=== PATIENT | female | born 1985 | race Caucasian/White ===

== ENCOUNTER 2017-01-11 17:38 | Inpatient (IN) | payer OTHER ==
[~2017-01-11] VITALS: Ht 167.6 cm; Wt 68.0 kg
[2017-01-11 22:34] VITALS: Ht 167.6 cm; Wt 68.0 kg
[2017-01-11 22:36] VITALS: BP 157/95; RESP 18
[2017-01-11] MEDS ORDERED: HYDROCODONE/APAP (5/325) TAB PO PRN (23:30)
[2017-01-11] MEDS ORDERED: BISACODYL (EC) 5 MG TAB PO PRN (23:30)
[2017-01-11] MEDS ORDERED: ONDANSETRON 4 MG INJ IV PRN (23:30)
[2017-01-11] MEDS ORDERED: ACETAMINOPHEN 325 MG TAB PO PRN (23:30)
[2017-01-12] MEDS: LORAZEPAM 1 MG TAB PO PRN ×3 (00:18→15:10)
[2017-01-12 02:55] VITALS: BP 94/55; RESP 17
[2017-01-12] MEDS: PANTOPRAZOLE 40 MG INJ IV SCH (05:31)
[2017-01-12 05:53] LABS: ADD SCAN DIFF NO
[2017-01-12 05:54] LABS: BASOPHILS % 0.5 % (0.0-2.0); EOSINOPHILS # 0.1 10^3/ul (0.0-0.5); EOSINOPHILS % 2.2 % (0.0-7.0); HEMATOCRIT 40.4 % (37.0-47.0); HEMOGLOBIN 13.7 g/dl (12.0-16.0); LYMPHOCYTES # 2.8 10^3/ul (0.8-2.9); LYMPHOCYTES % 47.7 % (15.0-51.0); MEAN CORPUSCULAR HEMOGLOBIN 29.8 pg (29.0-33.0); MEAN CORPUSCULAR HGB CONC 33.9 g/dl (32.0-37.0); MEAN PLATELET VOLUME 11.5 fl (7.4-10.4); MONOCYTE # 0.5 10^3/ul (0.3-0.9); MONOCYTES % 8.6 % (0.0-11.0); NEUTROPHIL # 2.4 10^3/ul (1.6-7.5); NEUTROPHILS % 40.8 % (39.0-77.0); PLATELET COUNT 219 10^3/UL (140-415); RED BLOOD COUNT 4.59 10^6/ul (4.20-5.40); RED CELL DISTRIBUTION WIDTH 11.8 % (11.5-14.5); WHITE BLOOD COUNT 5.8 10^3/ul (4.8-10.8)
[2017-01-12 07:18] LABS: CALCIUM 9.2 mg/dl (8.4-10.2); CREATININE 0.75 mg/dl (0.44-1.00); POTASSIUM 3.9 mmol/L (3.5-5.1)
[2017-01-12] MEDS: HYDROCODONE/APAP (10/325) TAB PO PRN ×3 (07:38→19:21)
[2017-01-12] MEDS: ONDANSETRON 4 MG TAB PO PRN (07:38)
[2017-01-12] MEDS: POLYETHYLENE GLYCOL 17 GM PACKET PO SCH (08:37)
[2017-01-12] MEDS: DOCUSATE SODIUM 100 MG CAP PO SCH ×2 (08:37→21:03)
[2017-01-12] MEDS: HEPARIN 5,000 UNIT/0.5 ML VIAL SC SCH ×2 (08:38→21:00)
[2017-01-12 08:40] VITALS: BP 100/71; RESP 18
[2017-01-12 14:16] VITALS: BP 100/58; RESP 20
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
[2017-01-12 18:49] VITALS: BP 115/68; RESP 16
[2017-01-12 19:44] VITALS: BP 111/67; RESP 18
[2017-01-12] MEDS: SENNA TAB PO SCH (21:03)
--- NOTE | 2017-01-12 22:23 | QN ---
Documentation Comment [id number] LORI HOLCOMB MD Jan 12, 2017 22:23
[2017-01-13] MEDS: HEPARIN 5,000 UNIT/0.5 ML VIAL SC SCH ×3 (00:23→21:00)
[2017-01-13 02:00] VITALS: BP 120/57; RESP 18
[2017-01-13] MEDS: PANTOPRAZOLE 40 MG INJ IV SCH (06:00)
[2017-01-13 07:27] VITALS: BP 108/64; RESP 18
[2017-01-13] MEDS: DOCUSATE SODIUM 100 MG CAP PO SCH ×2 (08:26→20:37)
[2017-01-13] MEDS: SENNA TAB PO SCH (08:26)
[2017-01-13] MEDS: HYDROCODONE/APAP (10/325) TAB PO PRN ×3 (08:26→20:38)
[2017-01-13] MEDS: POLYETHYLENE GLYCOL 17 GM PACKET PO SCH (08:26)
[2017-01-13] MEDS: LORAZEPAM 1 MG TAB PO PRN ×2 (10:04→17:57)
--- NOTE | 2017-01-13 12:49 | PN ---
Date/Time of Note Date/Time of Note DATE: 01/13/17 TIME: 12:45 Assessment/Plan Lines/Catheters IV Catheter Type (from Nrs): Saline Lock Assessment/Plan Chief Complaint/Hosp Course 1. 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 Anxiety: still anxious, hyperverbal -anxiolytics 3. Abdominal pain: likely 2/2 above -as above Patient seen and examined in collaboration with Dr. Prasanna Patel Problems: Subjective 24 Hr Interval Summary C/o nausea and fatigue. c/o headache and inability to have a bm. Tolerating diet. States pain medicine is not working as well to control her pain. No c/o dizziness, sz, fevers, cough, sob, n/v/d, neuro changes. Exam/Review of Systems Vital Signs Vitals Vital Signs Date Time Temp Pulse Resp B/P Pulse Ox O2 Delivery O2 Flow Rate FiO2 01/13/17 07:27 98.4 57 18 108/64 95 Intake and Output 01/12/17 01/12/17 01/13/17 15:00 23:00 07:00 Intake Total 1160 ml 450 ml Balance 1160 ml 450 ml Exam Free Text/Dictation Constitutional: alert, oriented Psych: anxiety Head: atraumatic, normocephalic Eyes: nl lids, nl sclera ENMT: mucosa pink and moist Neck: non-tender, supple Respiratory: clear to auscultation, normal air movement Cardiovascular: nl pulses, regular rate and rhythm Gastrointestinal: non-tender, other (rectal exam: bulge anterior soft tissue; no masses palpable), soft Genitourinary - Female: No CVA tenderness Musculoskeletal: nl gait and stance Extremities: normal pulses, No edema Neurological: nl mental status, nl speech, nl strength Skin: No rash or lesions Lymph: No nl lymph nodes Results Result Diagram: 01/12/17 0454 01/12/17 0454 DOROTEO ELDER NP Jan 13, 2017 12:49
[2017-01-13 14:02] VITALS: BP 111/65; RESP 18
[2017-01-13] MEDS: ALPRAZOLAM 0.25 MG TAB PO SCH ×2 (15:59→22:32)
[2017-01-13] MEDS: NICOTINE (14 MG/24 HR) PATCH TRANSDERM SCH (17:57)
[2017-01-13] MEDS: DEXTROSE 5%-0.45% NACL 1,000 ML IV SCH (17:57)
[2017-01-13] MEDS: OXYCODONE/ACETAMINOPHEN (5/325) TAB PO PRN (18:01)
[2017-01-13] MEDS ORDERED: BISACODYL (EC) 5 MG TAB PO ONE (18:30)
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
[2017-01-13 19:28] VITALS: BP 111/55; RESP 18
[2017-01-13] MEDS ORDERED: PEG/ELECTROLYTES 4L BTL PO ONE (20:00)
--- NOTE | 2017-01-13 22:19 | PN ---
Date/Time of Note Date/Time of Note DATE: 01/13/17 TIME: 22:17 Assessment/Plan VTE Prophylaxis VTE Prophylaxis Intervention: other Lines/Catheters IV Catheter Type (from Nrsg): Saline Lock Assessment/Plan Chief Complaint/Hosp Course PELVIC PIN SYND POSS SPASTIC COLON NO CLINICAL BOWEL OBS EATING FOOD PLAN PER GI COLONOSCOPY Problems: Subjective 24 Hr Interval Summary Subjective hx not possible: other (NO SOB,EATING FOOD) Exam/Review of Systems Vital Signs Vitals Vital Signs Date Time Temp Pulse Resp B/P Pulse Ox O2 Delivery O2 Flow Rate FiO2 01/13/17 19:28 97.6 65 18 111/55 99 Intake and Output 01/12/17 01/12/17 01/13/17 15:00 23:00 07:00 Intake Total 1160 ml 450 ml Balance 1160 ml 450 ml Exam Neck: supple Respiratory: clear to auscultation Cardiovascular: regular rate and rhythm Gastrointestinal: bowel sounds (+), soft Musculoskeletal: nl extremities to inspection Results Result Diagram: 01/12/17 0454 01/12/17 0454 Medications Medications Current Medications Heparin Sodium (Porcine) (Heparin (5000 Units/0.5 ml)) 5,000 unit BID SC Last administered on 01/13/17 08:49; Admin Dose 5,000 UNIT; Start 01/12/17 at 09:00 Senna (Senokot) 1 tab DAILY PO Last administered on 01/13/17 08:26; Admin Dose 1 TAB; Start 01/12/17 at 21:00 Docusate Sodium (Colace) 100 mg BID PO Last administered on 01/13/17 20:37; Admin Dose 100 MG; Start 01/12/17 at 09:00 Polyethylene Glycol (Miralax) 17 gm DAILY PO Last administered on 01/13/17 08: 26; Admin Dose 17 GM; Start 01/12/17 at 09:00 Acetaminophen (Tylenol Tab) 650 mg Q6H PRN PO PAIN AND OR ELEVATED TEMP; Start 01/11/17 at 23:30 Acetaminophen/ Hydrocodone Bitart ([place] (5/325)) 1 tab Q4H PRN PO PAIN Last administered on 01/13/17 11:11; Admin Dose 1 TAB; Start 01/11/17 at 23:30 Acetaminophen/ Hydrocodone Bitart ([place] (10/325)) 1 tab Q4H PRN PO SEVERE PAIN Last administered on 01/13/17 20:38; Admin Dose 1 TAB; Start 01/11/17 at 23:30 Pantoprazole (Protonix Iv) 40 mg DAILY@06 IV ; Start 01/12/17 at 06:00 Bisacodyl (Dulcolax) 10 mg BID PRN PO CONSTIPATION; Start 01/11/17 at 23:30 Lorazepam (Ativan) 1 mg Q6H PRN PO ANXIETY Last administered on 01/13/17 17:57 ; Admin Dose 1 MG; Start 01/12/17 at 00:00 Ondansetron HCl (Zofran Tab) 4 mg Q6H PRN PO NAUSEA AND/OR VOMITING Last administered on 01/12/17 07:38; Admin Dose 4 MG; Start 01/12/17 at 07:00 Oxycodone/ Acetaminophen (Percocet (5/ 325)) 1 tab Q6H PRN PO PAIN Last administered on 01/13/17 18:01; Admin Dose 1 TAB; Start 01/12/17 at 20:00 Alprazolam 0.25 mg 0.25 mg BID PO Last administered on 01/13/17 15:59; Admin Dose 0.25 MG; Start 01/13/17 at 15:51 Dextrose/Sodium Chloride (D5-1/2ns) 1,000 ml @ 75 mls/hr [id number] IV Last administered on 01/13/17 17:57; Admin Dose 75 MLS/HR; Start 01/13/17 at 17:30 Nicotine (Nicoderm 14 Mg/ 24hr) 1 patch DAILY TRANSDERM Last administered on 17:57; Admin Dose 1 PATCH; Start 01/13/17 at 17:30 LORI HOLCOMB MD Jan 13, 2017 22:18
[2017-01-14] VITALS (8 sets, daily range): BP systolic 97–120; BP diastolic 58–78; RESP 12–20
[2017-01-14] MEDS: ONDANSETRON 4 MG TAB PO PRN ×2 (00:18→08:34)
[2017-01-14] MEDS: OXYCODONE/ACETAMINOPHEN (5/325) TAB PO PRN ×2 (00:19→18:29)
[2017-01-14] MEDS ORDERED: BISACODYL (EC) 5 MG TAB PO ONE (00:30)
[2017-01-14] MEDS ORDERED: PEG/ELECTROLYTES 4L BTL PO ONE (00:30)
[2017-01-14] MEDS: HYDROCODONE/APAP (10/325) TAB PO PRN ×3 (05:57→21:07)
[2017-01-14] MEDS: PANTOPRAZOLE 40 MG INJ IV SCH (05:58)
[2017-01-14] MEDS: DEXTROSE 5%-0.45% NACL 1,000 ML IV SCH (05:58)
[2017-01-14] MEDS: SENNA TAB PO SCH (08:27)
[2017-01-14] MEDS: ALPRAZOLAM 0.25 MG TAB PO SCH ×2 (08:27→21:05)
[2017-01-14] MEDS: POLYETHYLENE GLYCOL 17 GM PACKET PO SCH (08:27)
[2017-01-14] MEDS: DOCUSATE SODIUM 100 MG CAP PO SCH ×2 (08:27→21:00)
[2017-01-14] MEDS: HEPARIN 5,000 UNIT/0.5 ML VIAL SC SCH ×2 (08:28→21:00)
[2017-01-14] MEDS: NICOTINE (14 MG/24 HR) PATCH TRANSDERM SCH ×2 (08:29→11:42)
[2017-01-14] MEDS ORDERED: NICOTINE (14 MG/24 HR) PATCH TRANSDERM SCH (09:00)
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
[2017-01-14] MEDS ORDERED: PROPOFOL 20 ML ONE (17:12)
[2017-01-14] MEDS ORDERED: MIDAZOLAM 1 MG/ML 2 ML INJ ONE ×2 (17:13)
--- NOTE | 2017-01-14 17:31 | OPR ---
Date/Time of Note Date/Time of Note DATE: 01/14/17 TIME: 17:30 Operative Report Preoperative Diagnosis Abdominal pain and severe constipation, barium enema showed kink in the rectum Postoperative Diagnosis Normal:, Normal retroversion Surgeon: ASHISH GUILLORY MD Anesthesia: MAC Specimens None Complications: None ASHISH GUILLORY MD Jan 14, 2017 17:31
--- NOTE | 2017-01-14 21:58 | PN ---
Date/Time of Note Date/Time of Note DATE: 01/14/17 TIME: 21:58 Assessment/Plan Lines/Catheters IV Catheter Type (from [facility]): Saline Lock Assessment/Plan Chief Complaint/Hosp Course 1. Possible bowel obstruction with difficulty defecating: Defecogram: shows no obstruction and no rectocele; spastic pelvic floor syndrome and mid rectal kink -will likely need colonoscopy; has not had one in the past -GI consult -colorectal surgery eval -bowel regimen 2. Anxiety: still anxious, hyperverbal -anxiolytics 3. Abdominal pain: likely 2/2 above; labile -as above 4. Current smoker: on patch -encourage cessation Patient seen and examined in collaboration with Dr. Prasanna Patel Problems: Subjective 24 Hr Interval Summary Very anxious and crying intermittently. Reports feeling frustrated. Unable to completely evacuate bowel. Abdominal pain min/mod-labile. NIELSON. No n/v/d/dysuria , sz, dizziness, cp, palpitations, fevers, chills. Exam/Review of Systems Vital Signs Vitals Vital Signs Date Time Temp Pulse Resp B/P Pulse Ox O2 Delivery O2 Flow Rate FiO2 01/15/17 07:39 98.0 52 18 109/53 92 01/14/17 17:35 Room Air Intake and Output 01/14/17 01/14/17 01/15/17 15:00 23:00 07:00 Intake Total 750 ml 240 ml Balance 750 ml 240 ml Exam Free Text/Dictation Constitutional: alert, oriented Psych: anxiety Head: atraumatic, normocephalic Eyes: nl lids, nl sclera ENMT: mucosa pink and moist Neck: non-tender, supple Respiratory: clear to auscultation, normal air movement Cardiovascular: nl pulses, regular rate and rhythm Gastrointestinal: non-tender, other (rectal exam: bulge anterior soft tissue; no masses palpable), soft Genitourinary - Female: No CVA tenderness Musculoskeletal: nl gait and stance Extremities: normal pulses, No edema Neurological: nl mental status, nl speech, nl strength Skin: No rash or lesions Lymph: No nl lymph nodes Results Result Diagram: 01/12/17 0454 01/12/17 0454 DOROTEO ELDER NP Jan 14, 2017 21:58
[2017-01-14] MEDS: LORAZEPAM 1 MG TAB PO PRN (22:47)
[2017-01-15] MEDS: OXYCODONE/ACETAMINOPHEN (5/325) TAB PO PRN (01:40)
[2017-01-15 02:08] VITALS: BP 99/55; RESP 18
[2017-01-15] MEDS: PANTOPRAZOLE 40 MG INJ IV SCH (06:00)
[2017-01-15 07:39] VITALS: BP 109/53; RESP 18
[2017-01-15] MEDS: HEPARIN 5,000 UNIT/0.5 ML VIAL SC SCH (08:29)
[2017-01-15] MEDS: NICOTINE (14 MG/24 HR) PATCH TRANSDERM SCH ×2 (08:29→09:47)
[2017-01-15] MEDS: ALPRAZOLAM 0.25 MG TAB PO SCH (08:30)
[2017-01-15] MEDS: SENNA TAB PO SCH (08:31)
[2017-01-15] MEDS: POLYETHYLENE GLYCOL 17 GM PACKET PO SCH (08:31)
[2017-01-15] MEDS: DOCUSATE SODIUM 100 MG CAP PO SCH (08:31)
[2017-01-15] MEDS: HYDROCODONE/APAP (10/325) TAB PO PRN (08:36)
[2017-01-15] MEDS: LORAZEPAM 1 MG TAB PO PRN (09:59)
[2017-01-15] MEDS: ONDANSETRON 4 MG TAB PO PRN (10:36)
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
--- NOTE | 2017-01-15 12:18 | HP ---
DATE OF ADMISSION: 01/11/2017 HISTORY OF PRESENT ILLNESS: The patient is a 31-year-old female who has history of pilonidal cyst, history of rectal spasm, and the patient has been seen by Dr. Franklin in the past. Referred to [facility]. The patient was seen at [facility]. Because of patient's , the patient was referred here. PAST MEDICAL HISTORY: History of abdominal pain. History of anxiety. History of spinal neural system surgery. ALLERGIES: NONE. FAMILY HISTORY: Noncontributory. SOCIAL HISTORY: Negative. MEDICATIONS: At home, the patient is currently on: 1. Tylenol 2. ppi 3. Aspirin 4. Zofran 5. Ativan 6. Oxycodone 7. Protonix 8. MiraLAX REVIEW OF SYSTEMS: HEENT unremarkable. RESPIRATORY: . ABDOMEN: Complains of abdominal pain. : No dysuria or hematuria. FLEXIBLE NANNY: Unremarkable. PHYSICAL EXAMINATION: GENERAL APPEARANCE: Awake, alert, conscious, coherent. HEENT: Normocephalic. Pupils equal and reactive to light. NECK: Supple. No JVD. LUNGS: Clear. HEENT: S1, S2 normal. ABDOMEN: Soft, nontender. Bowel sounds present. No palpable mass or hepatosplenomegaly. No guarding or rebound tenderness. EXTREMITIES: There is no clubbing, cyanosis or edema. NEUROLOGIC: The patient is awake, alert with no focal deficits. LABORATORY DATA: Hematocrit 40.4._. IMPRESSION: 1. Patient has a history of rectal pain. 2. History of pilonidal cyst surgery. 3. History of abdominal surgery and complicated in the past. PLAN: Obtain GI consultation. Surgical evaluation for the patient. Continue pain medication. Continue other medication. Psychiatric consultation will be considered. Dictated By: Spencer Hui MD /ashvin/luli /Document#: [id number] PB
[2017-01-15] MEDS ORDERED: ALPR0.254 PO (12:23)
[2017-01-15] MEDS ORDERED: ONDA4TAB95 PO (12:23)
[2017-01-15] MEDS ORDERED: HYDR-3498 PO (12:23)
[2017-01-15] MEDS ORDERED: LORA1TAB PO (12:23)
[2017-01-15] MEDS ORDERED: DOCU-216 PO (12:23)
[2017-01-15] MEDS ORDERED: LINA145C PO (12:23)
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
[2017-01-15 14:00] VITALS: BP 130/65; RESP 20
--- NOTE | 2017-01-15 17:19 | DS ---
Date/Time of Note Date/Time of Note DATE: 01/15/17 TIME: 17:15 Discharge Summary Admission/Discharge Info Admit Date/Time Jan 11, 2017 at 22:08 Discharge Date/Time Jan 15, 2017 at 14:25 Discharge Diagnosis Constipation, pelvic floor weakness Patient Condition: Good Consults Dr bingham, Dr Patel Procedures Colonoscopy Hx of Present Illness pt was admitted with difficulty defecation. Was consulted by GI MD and found no organic abnormalities during colonoscopy. Hospital Course 1. Possible bowel obstruction with difficulty defecating: Defecogram: shows no obstruction and no rectocele; spastic pelvic floor syndrome and mid rectal kink -will likely need colonoscopy; has not had one in the past -GI consult -colorectal surgery eval -bowel regimen 2. Anxiety: still anxious, hyperverbal -anxiolytics 3. Abdominal pain: likely 2/2 above; labile -as above 4. Current smoker: on patch -encourage cessation Patient seen and examined in collaboration with Dr. Prasanna Patel Home Meds Active Scripts Linaclotide (LINZESS) 145 Mcg Capsule, 145 MCG PO DAILY, #30 CAP Prov:GIFTY ECHAVARRIA 01/15/17 Alprazolam* (Alprazolam*) 0.25 Mg Tablet, 0.25 MG PO BID for 14 Days, TAB Prov:GIFTY ECHAVARRIA 01/15/17 Ondansetron Hcl* (Ondansetron Hcl*) 4 Mg Tablet, 4 MG PO Q6H Y for NAUSEA AND/ OR VOMITING for 28 Days, TAB Prov:GIFTY ECHAVARRIA 01/15/17 Lorazepam* (Lorazepam*) 1 Mg Tablet, 1 MG PO Q6H Y for ANXIETY for 10 Days, TAB Prov:GIFTY ECHAVARRIA 01/15/17 Hydrocodone Bit-Acetaminophen (Hydrocodone Bit-APAP) 5-325MG Tablet, 1 TAB PO Q4H Y for PAIN for 10 Days, TAB Prov:GIFTY ECHAVARRIA 01/15/17 Docusate Sodium (Dok) 100 Mg Capsule, 100 MG PO BID for 28 Days, CAP Prov:GIFTY ECHAVARRIA 01/15/17 Primary Care Provider MD JERICHO Miller ANNA Jan 15, 2017 17:19
--- NOTE | 2017-01-18 12:53 | GILP ---
DATE OF PROCEDURE: PROCEDURE PERFORMED: Colonoscopy. INDICATION: A 31-year-old female undergoing this procedure for abdominal pain. She has constipation and a kink in the rectum as described on the Gastrografin enema. The purpose is to evaluate the colon to rule out any obstructing lesion or rectal pathology. DESCRIPTION OF PROCEDURE: The risks of the procedure, related and unrelated complications, anesthetic risks, and alternatives discussed. Informed consent was obtained. The patient was sedated by the anesthesiologist. After optimum sedation, digital examination done which was normal. Scope was passed much into rectum, advanced to sigmoid, descending, transverse colon all the way into cecum. Appendix identified. Base of the colon appeared normal. While coming out, mucosa was thoroughly inspected. No gross condition was identified. Retrosternally it was normal. There was some stool in the cecum and ascending colon. IMPRESSION: 1. Normal findings all the way into cecum. 2. Normal retroversion. PLAN: Patient to be placed on Linzess 145 mcg daily and sitz bath. Dictated By: Edmundo Gaytan MD /ashvin/della /Document#: [id number] CC: Spencer Hui MD;*End*
== END 2017-01-15 14:25 | disposition home or self-care (01) | DRG 390 ==
LOC: PP2 22:08 → MS2 01-12 18:31
PROVIDERS: ADMIT Internal Medicine Nephrology; ATTEND Internal Medicine Nephrology
PROC: 0DJD8ZZ Inspection of Lower Intestinal Tract, Via Natural or Artificial Opening Endoscopic (ICD-10-PCS; principal; 2017-01-14 16:30)
DX: K56.60 Unspecified intestinal obstruction (principal); F41.9 Anxiety disorder, unspecified; K59.00 Constipation, unspecified; F17.200 Nicotine dependence, unspecified, uncomplicated
CPT/HCPCS: 80048; 85025; 87081; C9113; J1644; J2250; J7042